=== PATIENT | male | born 1995 | race Two or more races ===

== ENCOUNTER 2017-03-11 12:22 | Emergency (ER) | payer MEDICAID ==
[~2017-03-11] VITALS: Ht 170.2 cm; Wt 123.0 kg
[2017-03-11 12:27] VITALS: BP 123/82
[2017-03-11] MEDS ORDERED: BACITRACIN ZINC OINT UDPKT TOP ONE (15:45)
== END 2017-03-11 16:01 | disposition home or self-care (01) ==
LOC: ER 15:34
DX: M25.571 Pain in right ankle and joints of right foot (principal)
CPT/HCPCS: 99283